=== PATIENT | male | born 1980 | race Caucasian/White ===

== ENCOUNTER 2020-04-02 17:21 | Emergency (ER) | payer OTHER ==
[~2020-04-02] VITALS: Ht 180.3 cm; Wt 86.2 kg
[2020-04-02 18:03] VITALS: BP 154/110
[2020-04-02] MEDS ORDERED: HYDROCORTISON-A10 ML OTIC (18:20)
== END 2020-04-02 18:44 | disposition home or self-care (01) ==
LOC: ER 17:21
DX: T16.2XXA Foreign body in left ear, initial encounter (principal); F17.210 Nicotine dependence, cigarettes, uncomplicated; X58.XXXA Exposure to other specified factors, initial encounter; Y93.89 Activity, other specified; Y92.89 Other specified places as the place of occurrence of the external cause; Y99.8 Other external cause status